=== PATIENT | male | born 1985 | race Two or more races ===

== ENCOUNTER 2016-10-10 17:49 | Emergency (ER) | payer BC ==
[~2016-10-10] VITALS: Ht 180.3 cm; Wt 88.5 kg
[2016-10-10 17:49] VITALS: BP 146/89
[2016-10-10] MEDS ORDERED: NKM (17:53)
--- NOTE | 2016-10-10 18:06 | Emergency Room Report ---
History of Present Illness General Chief Complaint: Chest Pain Source: Patient Present Illness HPI 30YOM BIBEMS from UC with epigastric pain. Non-radiating. No assoc cough, fever/chills, sob, nausea/vomiting. Pain not better with change of position Heavy/dull, intermittent, 2 days. Resolved with ASA and nitro by EMS No history of GERD, acid reflux. Doesnt drink, no drugs, non-smoker Ni family history of DVT/PE No family history of SCD No recent long distance travel No recent URI symptoms UC did EKG which showed TWI in 3 and AVF. Allergies: Coded Allergies: No Known Allergies (Unverified , 10/10/16) Patient History Past Medical History: none Past Surgical History: none Pertinent Family History: none Social History: Denies: smoking, alcohol use, drug use Immunizations: UTD Reviewed Nursing Documentation: PMH: Agreed, PSxH: Agreed Nursing Documentation-PMH Past Medical History: No Stated History Review of Systems All Other Systems: negative except mentioned in HPI Physical Exam Vital Signs Date Time Temp Pulse Resp B/P (MAP) Pulse Ox O2 Delivery O2 Flow Rate FiO2 10/10/16 17:49 98.8 88 16 146/89 98 Room Air Sp02 EP Interpretation: reviewed, normal General Appearance: normal inspection, well appearing, no apparent distress, alert, GCS 15, non-toxic Head: normocephalic, atraumatic Eyes: bilateral eye PERRL, bilateral eye EOMI ENT: normal ENT inspection, hearing grossly normal, normal voice Neck: normal inspection, full range of motion, supple, no bony tend Respiratory: normal inspection, lungs clear, normal breath sounds, no respiratory distress, no retraction, no wheezing Cardiovascular #1: regular rate, rhythm, no edema, no JVD, no murmur, no rub, other - Bedside cardiac sono: no pericardial effusion Gastrointestinal: normal inspection, normal bowel sounds, non tender, soft, no guarding, no hernia Genitourinary: no CVA tenderness Musculoskeletal: normal inspection, back normal, normal range of motion, Vivienne' s Sign negative Neurologic: normal inspection, alert, oriented x3, responsive, service delivery analyst III-XII nml as tested, motor strength/tone normal, speech normal Psychiatric: normal inspection, judgement/insight normal, mood/affect normal Skin: normal inspection, normal color, no rash Lymphatic: normal inspection Medical Decision Making Diagnostic Impression: Primary Impression: Abdominal pain Qualified Codes: R10.13 - Epigastric pain ER Course Epigastric abd pain VSS. Afebrile 2 days duration ECG with TWI in 3, AVF. Otherwise no ischemia Troponin 0. CXR: No PNA, PTX No recent URI symptoms, so unliekly pericarditis No CAD risk factors and symptoms 2 days so unlikely ACS Remained asymptomatic in the ED d-dimer negative, unlikely PE Patient also admits recent bloating, gas-like pain Likely gastritis/gastroenteritis Gave GI cocktail in ED Rx Pepcid Will return in 2 days for worsening symptoms Also referred to Dr Kruse for endoscopy EKG Diagnostic Results Rate: normal Rhythm: NSR ST Segments: other - TWI in leads in 3, AVF Rhythm Strip Diag. Results EP Interpretation: yes Rate: 95 Rhythm: NSR, no PVC's, no ectopy Last Vital Signs Date Time Temp Pulse Resp B/P (MAP) Pulse Ox O2 Delivery O2 Flow Rate FiO2 10/10/16 17:49 98.8 88 16 146/89 98 Room Air Status: improved Disposition: HOME, SELF-CARE PAULO ALCALA M.D. Oct 10, 2016 18:05
[2016-10-10 18:27] LABS: BASOPHILS % (AUTO) 0.5 % (0.0-2.0); LYMPHOCYTES % (AUTO) 10.1 % (20.0-45.0); MEAN CORPUSCULAR HEMOGLOBIN 31.1 PG (27.0-31.0); MEAN CORPUSCULAR VOLUME 89 FL (80-99); MEAN PLATELET VOLUME 6.3 FL (6.5-10.1); MONOCYTES % (AUTO) 4.4 % (1.0-10.0); NEUTROPHILS % (AUTO) 84.9 % (45.0-75.0); PLATELET COUNT 308 K/UL (150-450); RED BLOOD COUNT 5.12 M/UL (4.70-6.10); RED CELL DISTRIBUTION WIDTH 11.4 % (11.6-14.8); WHITE BLOOD COUNT 12.4 K/UL (4.8-10.8)
[2016-10-10 18:45] LABS: ALANINE AMINOTRANSFERASE 16 U/L (3-41); ALBUMIN/GLOBULIN RATIO 1.4 (1.0-2.7); ANION GAP 15 (5-15); ASPARTATE AMINO TRANSFERASE 18 U/L (5-40); CALCIUM 10.1 mg/dL (8.6-10.2); CARBON DIOXIDE 25 mEQ/L (20-30); CHLORIDE 102 mEQ/L (98-107); CREATININE 0.8 mg/dL (0.7-1.2); GLOMERULAR FILTRATION RATE > 60 mL/min (>60); HEMOLYSIS 1; POTASSIUM 3.7 mEQ/L (3.4-4.9); SODIUM 142 mEQ/L (135-145); TOTAL PROTEIN 7.9 g/dL (6.6-8.7)
[2016-10-10 18:54] LABS: TROPONIN I < 0.30 ng/mL (<=0.30)
[2016-10-10] MEDS ORDERED: PEPCID20 MG ORAL (19:11)
[2016-10-10] MEDS ORDERED: Famotidine 20 MG/ 2ML VIAL IVP ONE (19:15)
[2016-10-10] MEDS ORDERED: Simethicone 80mg tab ORAL ONE (19:15)
[2016-10-10 19:23] VITALS: BP 144/86
[2016-10-10 19:27] VITALS: BP 144/86
--- NOTE | 2016-10-11 11:10 | Diagnostic Imaging Report ---
Indication: Dyspnea Comparison: None A single view chest radiograph was obtained. Findings: Cardiomediastinal appearance is within normal limits for age. Pulmonary vascularity is appropriate. The diaphragmatic contour is smooth and costophrenic angles are sharp. No pleural effusions are identified. The bones are unremarkable. Impression: No acute findings
== END 2016-10-10 19:53 | disposition home or self-care (01) ==
LOC: EDBD 17:49 → EMR 18:31
DX: R10.13 Epigastric pain (principal)
CPT/HCPCS: 36415; 71010; 80053; 82550; 82553; 84484; 85025; 85379; 93005; 96374; 99284; S0028